=== PATIENT | female | born 1990 | race African-American/Black ===

== ENCOUNTER 2023-05-23 17:56 | Inpatient (IN) ==
--- NOTE | 2023-05-23 18:31 | Emergency Department Note ---
Impression & Plan Kayce ED Provider Note HISTORY OF PRESENT ILLNESS: Patient is a 32-year-old female presenting with hallucinations and kayce. Patient is very tangential so history taking is difficult. 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 She reports that she has rapid cycling bipolar disorder and has been off her medications "for a long time but may be only 40 hours." She states that she is "seeing things and people morphed into these abnormalities." She does hear voices but denies any command to the hallucinations. Denies any suicidal or homicidal ideation. She denies any recreational drug use. ROS: as above PHYSICAL EXAM: Constitutional: Patient appears in no acute distress. HENT: Head: Normocephalic and atraumatic. Eyes: EOMI, PERRL Mouth/Throat: Mucous membranes moist. Neck: Trachea midline. Neck supple. Musculoskeletal: No edema, tenderness or deformity noted. Skin: Warm and dry. No rash, erythema, pallor or cyanosis Psychiatric: Patient appears well groomed. Makes fair eye contact. Speech is normal volume and rate. Thought process is tangential and difficult to redirect. Neurological: Alert and keenly responsive. CN II-XII grossly intact, moving all extremities equally and fully. MDM: - Vitals signs showed tachycardia. - History obtained via patient. Patient presents with hallucinations and kayce. Patient is very tangential in her thought process and difficult to get a history from. 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 Reports she has rapid cycling bipolar disorder has been off of her medications. Reports she is hearing voices but denies any command hallucinations. Denies any suicidal or homicidal ideation. - Chronic conditions affecting care: bipolar disorder - Differential diagnoses include, but are not limited to: depression; electrolyte abnormality; UTI; medication reaction; intoxication - External medical records reviewed. - Laboratory workup interpreted by myself showed slight leukocytosis (WBC 12.03); stable electrolytes; negative hCG - UA negative for infection - UDS negative - COVID negative - Patient seen In room with psychiatric animal caregiver. Patient is herself and is a 201 voluntary for inpatient psychiatric treatment. Bed search is in process. -[facility] and management. ASSESSMENT AND PLAN: Diagnosis: kayce Plan: admit to [address] [place] [address] Past Med/Surg History Medical History Noncompliance Bipolar disorder Surgical History No significant past surgical history Social History Smoking Status: Current every day smoker Tobacco Type: Cigarettes Preferred Language: Moroccan Feels Safe at Home: Yes Gender Identity: Female Allergies Allergies Allergy/AdvReac Type Severity Reaction Status Date / Time Penicillins Allergy Intermediate Hives Verified 05/22/23 21:52 Home Meds Home Medications Medication Instructions Recorded Confirmed hydroxyzine HCl 25 mg tablet 50 mg PO QID PRN Anxiety 05/22/23 05/22/23 Results & Data (ED) Vital Signs Vital Signs - 24 hr 05/23/23 17:47 05/23/23 17:47 05/23/23 20:28 Temperature 36.6 C 36.4 C L Temperature Source Oral Oral Pulse Rate 117 H Pulse Rate [Left Finger] 97 H Pulse Rhythm [Left Finger] Regular Pulse Strength [Left Finger] Normal Respiratory Rate 18 18 16 Respiratory Effort / Characteristics Non-Labored Spontaneous Respiratory Depth Normal Respiratory Pattern Regular Blood Pressure 139/87 Blood Pressure [Left Arm] 117/87 Blood Pressure Mean 104 Blood Pressure Mean [Left Arm] 97 Blood Pressure Position [Left Arm] Lying Pulse Oximetry 91 95 Oxygen Delivery Method Room Air Sepsis Recent Fever Within 48 Hours No Sepsis New/Unexplained Change in Mental Status N/A Sepsis Action Taken by Nursing No Action Required Laboratory Data 05/23/23 18:18 05/23/23 18:18 Lab Results 05/23/23 05/23/23 05/23/23 Range/Units 18:18 18:59 20:41 WBC 12.03 H (4.8-10.8) K/ul RBC 4.96 (4.20-5.40) M/uL Hgb 15.1 (12.0-16.0) g/dl Hct 42.7 (37.0-47.0) % MCV 86.1 (80.0-100.0) fL MCH 30.4 (25.0-34.0) pg MCHC 35.4 (32.0-36.0) g/dL RDW Std Deviation 40.6 (36.4-46.3) fL RDW Coeff of Phyllis 13.1 (11.5-14.5) % Plt Count 273 (130-400) K/uL MPV 11.6 (9.4-12.4) fL Immature Gran % (Auto) 0.2 % Neut % (Auto) 46.0 % Lymph % (Auto) 46.6 % [place] % (Auto) 5.8 % Eos % (Auto) 1.2 % Baso % (Auto) 0.2 % Neut # (Auto) 5.52 (1.40-6.50) K/uL Lymph # (Auto) 5.61 H (1.20-3.40) K/uL [place] # (Auto) 0.70 H (0.11-0.59) K/uL Eos # (Auto) 0.15 (0.00-0.50) K/uL Baso # (Auto) 0.03 (0.00-0.20) K/uL Immature Gran # (Auto) 0.02 (0.01-0.20) K/uL Sodium 136 (136-145) mmol/L Potassium 3.7 (3.5-5.1) mmol/L Chloride 101 (98-107) mmol/L Carbon Dioxide 24 (21-32) mmol/L Anion Gap 11 (3-11) BUN 9 (6-23) mg/dl Creatinine 0.94 (0.6-1.2) mg/dl Est Cr Clr Drug Dosing 128.6 ml/min Est GFR ( Amer) 92.4 ml/min Est GFR (Non-Af Amer) 79.7 ml/min BUN/Creatinine Ratio 9.6 L (10-20) Glucose 96 (70-99(Fasting)) mg/dl Calcium 9.8 (8.6-10.3) mg/dl Total Bilirubin 0.3 (0.2-1.0) mg/dl AST 23 (13-39) U/L ALT 25 (7-52) U/L Alkaline Phosphatase 83 (34-104) U/L Total Protein 8.2 (6.0-8.3) gm/dl Albumin 4.4 (3.4-5.0) gm/dl Globulin 3.8 (2.5-4.0) gm/dl Albumin/Globulin Ratio 1.2 (0.9-2) TSH 1.510 (0.300-4.500) uIu/ml HCG, Qual Negative (Negative) Urine Color Yellow Urine Appearance Clear (Clear) Urine pH 6.0 (4.5-7.5) Ur Specific [place] 1.013 (1.000-1.030) Urine Protein Negative (Negative) Urine Glucose (UA) Negative (Negative) Urine Ketones Trace H (Negative) Urine Blood Negative (Negative) Urine Nitrite Negative (Negative) Urine Bilirubin Negative (Negative) Urine Urobilinogen Negative (Negative) Ur Leukocyte Esterase 1+ H (Negative) Urine WBC (Auto) 5-10 H (0-5) /hpf Urine RBC (Auto) 0-4 (0-4) /hpf U Hyaline Cast (Auto) 0 (0-5) /lpf U Epithel Cells (Auto) >30 H (0-5) /lpf Urine Bacteria (Auto) Negative (Negative) Salicylates < 3.0 L (3.0-30) mg/dl Urine Opiates Screen Neg (Neg) Ur Methadone, Qual Neg (Neg) Acetaminophen < 3 L (10-30) ug/ml Urine Barbiturates Neg (Neg) Ur Phencyclidine (PCP) Neg (Neg) U Amphetamin/Meth Scrn Neg (Neg) MDMA (Ecstasy) Screen Neg (Neg) U Benzodiazepines Scrn Neg (Neg) Ur Cocaine Metabolite Neg (Neg) U Marijuana (THC) Screen Neg (Neg) Ethyl Alcohol mg/dL < 10.0 (<10.0) mg/dl SARS-CoV-2, RNA, NAAT NEGATIVE (NEGATIVE) Discharge Plan Visit Data Chief Complaint: Mental Health Evaluation ED Provider: Aurora Hewitt Discharge Problem: Kayce Forms Stand Alone Forms: My [facility], Suicide Prevention Resources Prescriptions Prescriptions: No Action hydroxyzine HCl 25 mg tablet 50 mg PO QID PRN (Reason: Anxiety) Referrals Referrals: PCP,NO [Primary Care Provider] -
[2023-05-23 19:04] LABS: Albumin Globulin Ratio 1.2 (0.9-2); Albumin Level 4.4 gm/dl (3.4-5.0); BUN Creatinine Ratio 9.6 (10-20); Bilirubin,Total 0.3 mg/dl (0.2-1.0); Calcium 9.8 mg/dl (8.6-10.3); Creatinine Clr Calc Pharmacy 128.6 ml/min; Est GFR (African American) 92.4 ml/min; Est GFR (Non-African American) 79.7 ml/min; Globulin 3.8 gm/dl (2.5-4.0); Potassium 3.7 mmol/L (3.5-5.1); Total Protein 8.2 gm/dl (6.0-8.3)
[2023-05-23 19:10] LABS: Hematocrit (blood only) 42.7 % (37.0-47.0); Hemoglobin 15.1 g/dl (12.0-16.0); Mean Corpuscular Hemoglobin 30.4 pg (25.0-34.0); Mean Corpuscular Hgb Conc 35.4 g/dL (32.0-36.0); Mean Corpuscular Volume 86.1 fL (80.0-100.0); Mean Platelet Volume 11.6 fL (9.4-12.4); Platelet Count 273 K/uL (130-400); RDW Coefficient of Variation 13.1 % (11.5-14.5); RDW Standard Deviation 40.6 fL (36.4-46.3); Red Blood Count 4.96 M/uL (4.20-5.40); White Blood Count 12.03 K/ul (4.8-10.8)
[2023-05-23 19:14] LABS: Acetaminophen < 3 ug/ml (10-30); Salicylate < 3.0 mg/dl (3.0-30)
[2023-05-23 19:16] LABS: Pregnancy Test, Serum Negative (Negative)
[2023-05-23 19:18] LABS: Thyroid Stimulating Hormone 1.51 uIu/ml (0.300-4.500)
[2023-05-23 19:19] LABS: Appearance Urine Clear (Clear); Bacteria Urine Automated Negative (Negative); Bilirubin Urine Negative (Negative); Blood Urine Negative (Negative); Cast Urine Automated 0 /lpf (0-5); Color Urine Yellow; Epithelial Cell Urine Auto >30 /lpf (0-5); Glucose Urine UA Negative (Negative); Ketones Urine Trace (Negative); Leukocyte Esterase Urine 1+ (Negative); Nitrite Urine Negative (Negative); Protein Urine Negative (Negative); RBC Urine Automated 0-4 /hpf (0-4); Specific Gravity Urine 1.013 (1.000-1.030); Urobilinogen Urine Negative (Negative)
[2023-05-23 19:47] LABS: Amphetamines+Metham, Urine Neg (Neg); Barbiturates, Urine Neg (Neg); Benzodiazepine, Urine Neg (Neg); Cocaine, Urine Neg (Neg); MDMA (Ecstacy), Urine Neg (Neg); Marijuana, Urine Neg (Neg); Methadone, Urine Neg (Neg); Opiate, Urine Neg (Neg); Phencyclidine, Urine Neg (Neg)
[2023-05-23 20:18] LABS: Basophils # (auto) 0.03 K/uL (0.00-0.20); Basophils % (auto) 0.2 %; Eosinophils # (auto) 0.15 K/uL (0.00-0.50); Eosinophils % (auto) 1.2 %; Immature Granulocytes # (auto) 0.02 K/uL (0.01-0.20); Immature Granulocytes % (auto) 0.2 %; Lymphocytes # (auto) 5.61 K/uL (1.20-3.40); Lymphocytes % (auto) 46.6 %; Monocytes % (auto) 5.8 %; Neutrophils # (auto) 5.52 K/uL (1.40-6.50)
[2023-05-24] MEDS ORDERED: hydrOXYzine HCl 25 MG TAB PO PRN ×2 (01:16)
[2023-05-24] MEDS ORDERED: ACETAMINOPHEN 325 MG TAB PO PRN (01:16)
[2023-05-24] MEDS ORDERED: MAGNESIUM HYDROXIDE SUSP 30 ML UDC PO PRN (01:16)
[2023-05-24] MEDS ORDERED: BISMUTH SUBSALICYLATE LIQD 236 ML PO PRN (01:16)
[2023-05-24] MEDS ORDERED: SODIUM CHLORIDE 0.65% NA SOLN 45 ML (OCEAN) PRN (01:16)
[2023-05-24] MEDS ORDERED: ALUMINUM/MAGNESIUM SUSP 30 ML UDC PO PRN (01:16)
[2023-05-24] MEDS ORDERED: risperiDONE 2 MG TABLET PO STA (01:18)
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
[2023-05-24] MEDS ORDERED: NICOTINE 21 MG/24 HR TDSY TD SCH (09:00)
[2023-05-24] MEDS ORDERED: risperiDONE 2 MG TABLET PO SCH (09:00)
[2023-05-24] MEDS ORDERED: PALIPERIDONE 3 MG TABCR PO SCH (09:45)
[2023-05-24] MEDS ORDERED: FOLIC ACID 1 MG TAB PO SCH (09:45)
[2023-05-24] MEDS ORDERED: PALIPERIDONE PALMITATE 234 MG/1.5 ML SYR IM SCH (13:00)
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
[2023-05-24] MEDS ORDERED: GABAPENTIN 100 MG CAP PO SCH (14:00)
[2023-05-24] MEDS ORDERED: cloNIDine HCL 0.1 MG TAB PO SCH (14:00)
[2023-05-24] MEDS ORDERED: GABAPENTIN 300 MG CAP PO SCH (21:00)
== END 2023-05-24 13:45 | disposition home or self-care (01) | DRG 885 ==
LOC: ED 17:56 → SUATTDRO 05-24 00:36 → 3S 05-24 00:36